=== PATIENT | female | born 1950 | race Caucasian/White ===

== ENCOUNTER 2023-06-23 12:58 | Outpatient (CLI) | payer MEDICARE, SELFPAY ==
--- NOTE | ~2023-06-23 | CT_ITS ---
EXAMINATION: CT sinus wo con DATE: 06/23/2023 13:09 INDICATION: Chronic sinusitis TECHNIQUE: Computed tomography (CT) of the paranasal sinuses was performed without intravenous contra st. The dose-length product was 389.16 mGy-cm. Automated exposure control and iterative reconstructio n technique were employed. COMPARISON: None FINDINGS: There is mild mucosal thickening of the maxillary sinuses. Rightward nasal septal deviation . Ostiomeatal units are patent. No air-fluid levels. No mucoperiosteal reaction. Mastoids are pneumat ized. IMPRESSION: 1. Mild maxillary sinus disease. Reviewed, dictated and finalized at location A.
== END 2023-06-23 12:59 ==
LOC: GOSHIMG 13:00
PROVIDERS: PCP Family Medicine; Visit Provider Otolaryngology
DX: J32.9 Chronic sinusitis, unspecified (principal)
CPT/HCPCS: 70486